=== PATIENT | male | born 1990 | race Asian ===

== ENCOUNTER 2017-08-31 13:34 | Emergency (ER) | payer OTHER ==
[~2017-08-31] VITALS: Ht 180.3 cm; Wt 95.3 kg
[2017-08-31 14:52] LABS: PLATELET COUNT 330 K/uL (142-355)
[2017-08-31 15:03] LABS: POTASSIUM 3.6 mmol/L (3.6-5.2)
== END 2017-08-31 15:40 | disposition home or self-care (01) ==
LOC: ED 13:34
PROVIDERS: Family Medicine
DX: I10 Essential (primary) hypertension (principal); F41.9 Anxiety disorder, unspecified
CPT/HCPCS: 36415; 80053; 82962; 85027; 93005; 99283

== ENCOUNTER 2018-07-22 16:46 | Emergency (ER) | payer OTHER ==
[~2018-07-22] VITALS: Ht 180.3 cm; Wt 97.5 kg
[2018-07-22 19:02] VITALS: BP 138/78; TEMP 98.4
== END 2018-07-22 19:03 | disposition home or self-care (01) ==
LOC: ED 16:46
DX: K04.7 Periapical abscess without sinus (principal)
CPT/HCPCS: 96372; 99283; J1885

== ENCOUNTER 2018-12-10 09:47 | Emergency (ER) | payer OTHER ==
[~2018-12-10] VITALS: Ht 180.3 cm; Wt 102.1 kg
[2018-12-10 10:34] VITALS: BP 144/88; TEMP 98.6
== END 2018-12-10 10:38 | disposition home or self-care (01) ==
LOC: ED 09:47
DX: K02.9 Dental caries, unspecified (principal)
CPT/HCPCS: 96372; 99282; J1885

== ENCOUNTER 2019-01-03 11:07 | Emergency (ER) | payer OTHER ==
[~2019-01-03] VITALS: Ht 180.3 cm; Wt 102.1 kg
[2019-01-03 11:17] VITALS: BP 135/89; TEMP 98.4
== END 2019-01-03 11:58 | disposition home or self-care (01) ==
LOC: ED 11:07
DX: K08.89 Other specified disorders of teeth and supporting structures (principal); Z98.890 Other specified postprocedural states
CPT/HCPCS: 96372; 99282; J1885

== ENCOUNTER 2022-02-07 11:55 | Emergency (ER) | payer BC ==
[~2022-02-07] VITALS: Ht 180.3 cm; Wt 102.1 kg
[2022-02-07 12:21] LABS: PLATELET COUNT 247 K/uL (142-355)
[2022-02-07 12:53] LABS: POTASSIUM 3.7 mmol/L (3.6-5.2)
[2022-02-07 13:15] VITALS: BP 143/87; TEMP 98.5
== END 2022-02-07 13:15 | disposition home or self-care (01) ==
LOC: ED 11:55
PROVIDERS: Emergency Medicine
DX: R11.2 Nausea with vomiting, unspecified (principal)
CPT/HCPCS: 80053; 80320; 85027; 96372; 99282; J2405

== ENCOUNTER 2022-10-21 00:29 | Emergency (ER) | payer BC ==
[~2022-10-21] VITALS: Ht 180.3 cm; Wt 102.1 kg
[2022-10-21 00:29] VITALS: BP 134/87; TEMP 98.8
== END 2022-10-21 01:40 | disposition home or self-care (01) ==
LOC: ED 00:29
PROC: 0HQDXZZ Repair Right Lower Arm Skin, External Approach (ICD-10-PCS; principal; 2022-10-21)
DX: S51.811A Laceration without foreign body of right forearm, initial encounter (principal); W01.110A Fall on same level from slipping, tripping and stumbling with subsequent striking against sharp glass, initial encounter; Y92.096 Garden or yard of other non-institutional residence as the place of occurrence of the external cause
CPT/HCPCS: 90471; 90715; 96372; 99283; J1885